=== PATIENT | male | born 1975 | race Caucasian/White ===

== ENCOUNTER 2017-02-20 06:40 | Day surgery (SDC) | payer BC ==
[2017-02-18 11:04] VITALS: BMI 26.4
[~2017-02-20 06:40] MED LIST: LACTATED RINGERS 1,000 ML IV SCH
[2017-02-20] MEDS ORDERED: LACTATED RINGERS 1,000 ML IV ONE (07:18)
[2017-02-20 07:21] VITALS: TEMP 98.2
[2017-02-20] MEDS ORDERED: PROPOFOL 10 MG/ML 20 ML VIAL IV ONE (07:44)
--- NOTE | 2017-02-20 07:48 | P.GSHP ---
History of Present Illness H&P Date: 02/20/17 Chief Complaint: History of colon polyps Patient here today for colonoscopy. He has a family history of colon cancer in grandparents. His last colonoscopy approximately 10 years ago revealed polyps. Does have some rectal bleeding at times. Past Medical History Additional Past Medical History / Comment(s): FAMILY HX COLON CA History of Any Multi-Drug Resistant Organisms: None Reported Additional Past Surgical History / Comment(s): COLONOSCOPY. ORIF RT ARM. TEETH REMOVED UNDER ANESTHESIA Past Anesthesia/Blood Transfusion Reactions: No Reported Reaction Smoking Status: Current every day smoker - Past Family History Mother Family Medical History: No Reported History Medications and Allergies Home Medications Medication Instructions Recorded Confirmed Type No Known Home Medications [No 02/18/17 02/18/17 History Known Home Medications] Allergies Allergy/AdvReac Type Severity Reaction Status Date / Time Penicillins AdvReac FACE GETS Verified 02/20/17 07:26 RED AND BLOTCHY Surgical - Exam Vital Signs Temp Pulse Resp BP Pulse Ox 98.2 F 73 18 127/82 97 02/20/17 07:20 02/20/17 07:20 02/20/17 07:20 02/20/17 07:20 02/20/17 07:20 Physical exam: General: Well-developed, well-nourished HEENT: Normocephalic, sclerae nonicteric Abdomen: Nontender, nondistended Extremities: No edema Neuro: Alert and oriented Assessment and Plan (1) Rectal bleeding Narrative/Plan: Will proceed with colonoscopy at this time. Status: Acute
--- NOTE | 2017-02-20 08:05 | P.PCN ---
Date of Procedure: 02/20/17 Preoperative Diagnosis: Postoperative Diagnosis: Procedure(s) Performed: PREOPERATIVE DIAGNOSIS: History of colon polyps, rectal bleeding POSTOPERATIVE DIAGNOSIS: Sigmoid polyp 2, small area of sigmoid colitis PROCEDURE: Colonoscopy with biopsy and polypectomy ANESTHESIA: MAC SURGEON: Ever Parkinson M.D. SPECIMENS: Sigmoid polyp, sigmoid colitis ENDOSCOPIC PROCEDURE: The patient was placed on the endoscopy table in the left decubitus position. The Olympus colonoscope was inserted into the anus and passed under direct visualization to the base of the cecum. The appendiceal orifice was visualized. From that point the scope was slowly withdrawn inspecting all surfaces carefully. There were no neoplastic inflammatory or polypoid lesions throughout the cecum, ascending, transverse, and descending colon. In the sigmoid colon there were 2 small polyps removed using the snare with cautery technique. There was an additional small area that had some inflamed mucosa and at first appeared polyp-like. More that I look at it I was concerned it may have represented a small focal area of colitis or even a inverted diverticulum. A small biopsy using the biopsy forceps took place. The remainder of the sigmoid and rectum appeared normal. There was no diverticulosis seen. Digital rectal examination was normal. The patient was taken to the recovery room in stable condition per anesthesia guidelines. RECOMMENDATIONS: Await biopsies results. If the small focus of sigmoid colitis represents adenomatous tissue will require short-term follow-up. Implants: Indications for Procedure: Operative Findings: Description of Procedure:
[2017-02-20 08:40] VITALS: BP 126/84; PULSE 61; RESP 16
== END 2017-02-20 08:49 | disposition home or self-care (01) ==
LOC: ORWHC2ENDO 06:40
PROVIDERS: ATTEND Surgery
DX: D12.5 Benign neoplasm of sigmoid colon (principal); K63.5 Polyp of colon; K62.5 Hemorrhage of anus and rectum; Z80.0 Family history of malignant neoplasm of digestive organs; Z86.010 Personal history of colon polyps; K52.9 Noninfective gastroenteritis and colitis, unspecified; F17.200 Nicotine dependence, unspecified, uncomplicated; Z88.0 Allergy status to penicillin
CPT/HCPCS: 88305; 45380; 45385; J2704

== ENCOUNTER 2019-10-12 08:16 | Emergency (ER) | payer BC ==
[2019-10-12 08:23] VITALS: BP 144/95; PULSE 95; RESP 18; TEMP 98.5
--- NOTE | 2019-10-12 08:45 | ED ---
General Adult HPI - General Chief complaint: Back Pain/Injury Stated complaint: back,leg pain Time Seen by Provider: 10/12/19 08:31 Source: patient, RN notes reviewed, old records reviewed Mode of arrival: ambulatory Limitations: physical limitation - History of Present Illness Initial comments: 44-year-old male presents for evaluation of low back pain and pain radiating to his left leg. He's had these symptoms for approximately 2 weeks on this occurrence. He's had this same symptoms of low back pain with radiation to the left leg for many years, he's had flareups lasting as many as 4 months in arrival. He was seen by his primary care physician 2 days ago and prescribed a muscle relaxer and anti-inflammatory but has not had these medications filled. He denies any bowel or bladder incontinence. He denies numbness or weakness to the leg. Pain is predominantly in his left buttock and low back. Pain as described as the same as it has been for many years. No fevers or chills. No IV drug use. - Related Data Previous Rx's Medication Instructions Recorded Cyclobenzaprine [Flexeril] 5 mg PO TID PRN #9 tablet 10/12/19 Ibuprofen [Motrin] 600 mg PO Q8HR PRN #24 tab 10/12/19 Allergies Allergy/AdvReac Type Severity Reaction Status Date / Time Penicillins AdvReac FACE GETS Verified 10/12/19 08:23 RED AND BLOTCHY Review of Systems ROS Statement: Those systems with pertinent positive or pertinent negative responses have been documented in the HPI. ROS Other: All systems not noted in ROS Statement are negative. Past Medical History Additional Past Medical History / Comment(s): chronic back pain, Genital Herpes History of Any Multi-Drug Resistant Organisms: None Reported Additional Past Surgical History / Comment(s): COLONOSCOPY. ORIF RT ARM. TEETH REMOVED UNDER ANESTHESIA Past Anesthesia/Blood Transfusion Reactions: No Reported Reaction Past Psychological History: No Psychological Hx Reported Smoking Status: Current every day smoker Past Alcohol Use History: Occasional Past Drug Use History: None Reported - Past Family History Mother Family Medical History: No Reported History General Exam Limitations: physical limitation General appearance: alert, in no apparent distress Head exam: Present: atraumatic, normocephalic Eye exam: Present: normal appearance, PERRL ENT exam: Present: normal exam Neck exam: Present: normal inspection, tenderness Respiratory exam: Present: normal lung sounds bilaterally. Absent: respiratory distress, wheezes Cardiovascular Exam: Present: regular rate, normal rhythm GI/Abdominal exam: Present: soft. Absent: distended, tenderness, guarding, rebound Extremities exam: Present: normal inspection, normal capillary refill. Absent: pedal edema, joint swelling Back exam: Present: normal inspection, full ROM, paraspinal tenderness. Absent: vertebral tenderness Neurological exam: Present: alert, oriented X3, CN II-XII intact, normal gait, reflexes normal (Normal patellar reflexes bilaterally), other (No sensory deficit in the lower extremity, no saddle anesthesia). Absent: motor sensory deficit Psychiatric exam: Present: normal affect, normal mood Skin exam: Present: warm, dry, intact. Absent: cyanosis, diaphoretic Course Vital Signs 10/12/19 08:19 Temperature 98.5 F Pulse Rate 95 Respiratory 18 Rate Blood Pressure 144/95 O2 Sat by Pulse 100 Oximetry Medical Decision Making - Medical Decision Making 44-year-old male with acute on chronic low back pain. No red flag symptoms, normal gait, normal reflexes, normal strength in the lower extremities. Given the chronicity of his symptoms I will recommend orthopedic follow-up and possible need of further imaging including MRI of the spine. I will prescribe an anti-inflammatory and muscle relaxer. Disposition Clinical Impression: Sciatica, Mechanical back pain Disposition: HOME SELF-CARE Condition: Good Instructions (If sedation given, give patient instructions): Acute Low Back Pain (ED) Additional Instructions: Please follow up with both her primary care physician and orthopedic surgery. Prescriptions: Cyclobenzaprine [Flexeril] 5 mg PO TID PRN #9 tablet PRN Reason: Muscle Spasm Ibuprofen [Motrin] 600 mg PO Q8HR PRN #24 tab PRN Reason: Pain Is patient prescribed a controlled substance at d/c from ED?: No Referrals: Jolene Hardy MD [Primary Care Provider] - 1-2 days Atyia Duque DO [Doctor of Osteopathic Medicine] - 1-2 days Time of Disposition: 08:44
== END 2019-10-12 08:58 | disposition home or self-care (01) ==
LOC: EC 08:16
DX: M54.42 Lumbago with sciatica, left side (principal); G89.29 Other chronic pain; F17.200 Nicotine dependence, unspecified, uncomplicated; Z88.0 Allergy status to penicillin
CPT/HCPCS: 99283

== ENCOUNTER → 2019-11-28 | Outpatient (CLI) | payer BC ==
[2019-11-28 11:04] LABS: African American GFR (CKD) >90 (>60 ml/min/1.73 sqM); Anion Gap 10 mmol/L; Blood Urea Nitrogen 17 mg/dL (9-20); Calcium 9.7 mg/dL (8.4-10.2); Carbon Dioxide 26 mmol/L (22-30); Chloride 102 mmol/L (98-107); Glucose 113 mg/dL (74-99); Non-African American GFR(CKD) >90 (>60 ml/min/1.73 sqM); Potassium 4.2 mmol/L (3.5-5.1); Sodium 138 mmol/L (137-145)
[2019-11-28 11:08] LABS: INR 0.9 (<1.2); Partial Thromboplastin Time 22.8 sec (22.0-30.0); Prothrombin Time 9.6 sec (9.0-12.0)
--- NOTE | 2019-11-28 11:13 | XR ---
EXAMINATION TYPE: XR chest 2V DATE OF EXAM: 11/28/2019 COMPARISON: NONE HISTORY: Presurgical testing for lumbar spine surgery. TECHNIQUE: Frontal and lateral views of the chest are obtained. FINDINGS: There is no focal air space opacity, pleural effusion, or pneumothorax seen. The cardiac silhouette size is within normal limits. The osseous structures are intact. Mild multilevel degener ative change of the thoracic spine. IMPRESSION: No acute cardiopulmonary process.
[2019-11-28 11:23] LABS: Basophils % (A) 0 %; Eosinophils # (A) 0.1 k/uL (0-0.7); Eosinophils % (A) 2 %; HCT 47.1 % (39.0-53.0); HGB 16.1 gm/dL (13.0-17.5); Lymphocytes # (A) 2.1 k/uL (1.0-4.8); Lymphocytes % (A) 24 %; MCH 31.3 pg (25.0-35.0); MCHC 34.3 g/dL (31.0-37.0); MCV 91.4 fL (80.0-100.0); Mean Platelet Volume 8.5; Monocytes # (A) 0.5 k/uL (0-1.0); Monocytes % (A) 6 %; Neutrophils # (A) 5.7 k/uL (1.3-7.7); Neutrophils % (A) 66 %; Platelet Count 200 k/uL (150-450); RBC 5.15 m/uL (4.30-5.90); RDW 12.7 % (11.5-15.5); WBC 8.6 k/uL (3.8-10.6)
[2019-11-28 12:00] LABS: Appearance,Urine Clear (Clear); Bilirubin,Urine Negative (Negative); Blood,Urine Negative (Negative); Color,Urine Yellow; Glucose,Urine (UA) Negative (Negative); Ketones,Urine Trace (Negative); Leukocyte Esterase,Urine Negative (Negative); Nitrite,Urine Negative (Negative); PH, Urine 5.5 (5.0-8.0); Protein,Urine Trace (Negative); Specific Gravity,Urine 1.022 (1.001-1.035); Urobilinogen,Urine <2.0 mg/dL (<2.0)
== END | disposition home or self-care (01) ==
LOC: LABWHC1 10:21
PROVIDERS: ATTEND Orthopaedic Surgery Orthopaedic Surgery of the Spine
DX: Z01.818 Encounter for other preprocedural examination (principal); Z01.810 Encounter for preprocedural cardiovascular examination; M51.27 Other intervertebral disc displacement, lumbosacral region
CPT/HCPCS: 36415; 71046; 80048; 81003; 85025; 85610; 85730; 86850; 86900; 86901; 93005

== ENCOUNTER 2019-12-02 08:45 | Day surgery (SDC) | payer BC ==
[2019-11-29 13:38] VITALS: BMI 25.1
[~2019-12-02 08:45] MED LIST changes: -LACTATED RINGERS 1,000 ML IV SCH; +SODIUM CHLORIDE 0.9% 1,000 ML IV SCH
[2019-12-02] MEDS ORDERED: ONDANSETRON 4 MG/2 ML VIAL IVP ONE (08:49)
[2019-12-02] MEDS ORDERED: DEXAMETHASONE SOD PHOSPHATE 10 MG/ML 1 ML VIAL IV ONE ×2 (08:49→14:17)
[2019-12-02] MEDS ORDERED: HYDROmorphone 0.5 MG/0.5 ML SYRINGE IVP PRN (08:49)
[2019-12-02] MEDS ORDERED: LIDOCAINE 1% (10MG/ML) FOR IV START INTRADERMA PRN (08:49)
[2019-12-02] MEDS ORDERED: LACTATED RINGERS 1,000 ML IV SCH (08:49)
[2019-12-02 09:39] VITALS: TEMP 97.8
[2019-12-02] MEDS ORDERED: PROPOFOL 10 MG/ML 20 ML VIAL IV ONE (10:13)
[2019-12-02] MEDS ORDERED: MIDAZOLAM 2 MG/2 ML VIAL ONE (10:13)
[2019-12-02] MEDS ORDERED: ROCURONIUM BROMIDE 10 MG/ML 5 ML VIAL IV ONE (10:13)
[2019-12-02] MEDS ORDERED: NEOSTIGMINE 1 MG/ML 10 ML VIAL ONE (10:13)
[2019-12-02] MEDS ORDERED: fentaNYL (PF) 50 MCG/ML 2 ML AMP ONE (10:13)
[2019-12-02] MEDS ORDERED: SUCCINYLCHOLINE CHLORIDE 100 MG/5 ML SYR IV ONE (10:13)
[2019-12-02] MEDS ORDERED: HYDROmorphone (PF) 1 MG/ML ONE (10:13)
[2019-12-02] MEDS ORDERED: GLYCOPYRROLATE 0.2 MG/ML 2 ML VIAL ONE (10:13)
[2019-12-02] MEDS ORDERED: methylPREDNISolone ACETATE 80 MG/ML 1 ML VIAL INTRABURSA ONE (10:56)
[2019-12-02] MEDS ORDERED: BUPIVACAIN-EPI 0.25%-1:200,000 30 ML VIAL SQ ONE (10:56)
--- NOTE | 2019-12-02 11:21 | FL ---
EXAMINATION TYPE: FL guidance operating room DATE OF EXAM: 12/02/2019 CLINICAL HISTORY: Lumbar laminectomy. Low back pain. TECHNIQUE: Fluoroscopy. COMPARISON: None. FINDINGS: Fluoroscopic guidance was provided during lumbar laminectomy procedure performed by Dr. Bienvenido downey. A total of 3 seconds of fluoroscopic time was utilized during the procedure and single spot flu oroscopic intraoperative image is acquired. Single image acquired shows placement of hardware near rizwan mbosacral junction posteriorly for localization. IMPRESSION: As Above.
[2019-12-02] MEDS ORDERED: LACTATED RINGERS 1,000 ML IV ONE (11:45)
[2019-12-02] MEDS ORDERED: ACYCLOVIR 800 MG TAB PO PRN (12:08)
[2019-12-02] MEDS ORDERED: ZOLPIDEM 10 MG TAB PO PRN (12:08)
[2019-12-02] MEDS ORDERED: HYDROcodone/APAP 5-325MG 1 EACH TAB PO PRN ×2 (12:08)
[2019-12-02] MEDS ORDERED: HYDROmorphone 1 MG/ML 1 ML SYRINGE IVP PRN (12:08)
[2019-12-02] MEDS ORDERED: KETOROLAC 30 MG/ML 1 ML VIAL IVP PRN (12:08)
[2019-12-02] MEDS ORDERED: CYCLOBENZAPRINE 5 MG TAB PO PRN (12:08)
[2019-12-02] MEDS ORDERED: IBUPROFEN 600 MG TAB PO PRN ×2 (12:08)
[2019-12-02] MEDS ORDERED: ONDANSETRON 4 MG/2 ML VIAL IVP PRN (12:08)
[2019-12-02] MEDS: MEPERIDINE 50 MG/ML SYRINGE IVP ONE ×2 (12:15→12:22)
--- NOTE | 2019-12-02 12:18 | P.OP ---
Date of Procedure: 12/02/19 Preoperative Diagnosis: Herniated nucleus pulposis L5-S1 with extruded fragment, severe left foraminal stenosis, left lower extremity radiculopathy, left lower extremity weakness, low back pain Postoperative Diagnosis: Herniated nucleus pulposis L5-S1 with extruded fragment, severe left foraminal stenosis, left lower extremity radiculopathy, left lower extremity weakness, low back pain Anesthesia: GETA Pathology: none sent Condition: stable Disposition: PACU Description of Procedure: BRIEF OPERATIVE NOTE Preoperative Diagnosis:Herniated nucleus pulposis L5-S1 with extruded fragment, severe left foraminal stenosis, left lower extremity radiculopathy, left lower extremity weakness, low back pain Postoperative Diagnosis:Herniated nucleus pulposis L5-S1 with extruded fragment, severe left foraminal stenosis, left lower extremity radiculopathy, left lower extremity weakness, low back pain Procedure: Laminectomy and decompression L5-S1 Discectomy for decompression L5-S1 Use of fluoroscopic guidance Surgeon: Dr. Duque Sterile Process Coordinator: Nasir Ayala is present throughout the entire the case persistence during positioning, dissection, exposure, visualization, and all crucial elements of the case as well as closure. Anesthesia: General anesthesia per Dr. Diamond Estimated blood loss: Approximately 50 mL Complications: None apparent Components implanted: None Disposition: To recovery room in good stable condition. OPERATIVE INDICATIONS The patient has been having issues in their lower back and lower extremities. The patient was found have a large disc herniation at L5-S1 with an extruded fragment. He had severe left foraminal stenosis. He was having back pain and left lower extremity radiculopathy and was having weakness of his left leg. He was having continued pain despite conservative treatment. He was having significant debility despite conservative care and he did not feel like his strength was making any improvement. He did not feel like he coworker to any activities with the pain and weakness of his leg. The patient has been through conservative treatment. We discussed various treatment options including surgery, and the patient wishes to proceed with surgery We discussed the risk, patient's alternatives and benefits of surgery including but not limited to, risk of bleeding risk of infection, risk of need for further surgery, risk of decreased, loss of motion, loss of function, nerve damage, paralysis, heart attack, blindness and . We also discussed the fact that there is a current pandemic and that we cannot completely guarantee that the patient be completely free of exposure. Certainly all of the work is involved would be asymptomatic including myself and the patient. He understood these risks as well. OPERATIVE SUMMARY After discussing all the risks, patient alternatives and benefits at length, the patient elected to proceed with surgical intervention, signed informed consent, and presented for their procedure. The patient was seen and examined in the preoperative holding area and the surgical site was marked. The patient was given antibiotics and brought to the operating room. The patient was sedated and intubated by anesthesia in standard fashion. The patient was positioned on to the operating room table in a prone position on the appropriate frame which was well-padded and well molded. We were careful to pad any bony prominences and pressure points. We were careful to maintain the patient's cervical spine and good neutral alignment and position throughout. The patient was prepped and draped in a normal standard fashion. An appropriate timeout and keystone protocol performed. We were able to proceed with the surgery. Fluoroscopy was utilized to establish the appropriate level. The local wound area was infiltrated with local anesthetic. An incision was made at the midline longitudinally over the appropriate levels at L5-S1. Dissection was taken down subcutaneously to the level of the fascia which was split midline. Dissection was taken over the lamina. Intraoperative fluoroscopy was taken which showed a marker at the appropriate level of L5-S1. With the appropriate level positively confirmed, we were able to proceed with laminectomy. The wound was copiously irrigated and suctioned dry as had been done periodically throughout the case. I performed a laminectomy with a combination of curettes and a high-speed bur and Kerrison rongeurs. A small medial facetectomy was performed again further access. A partial foraminotomy was also performed. Portions of the ligamentum flavum were taken down to expose the dura and traversing nerve root. I was able to mobilize the traversing nerve root and gain access to the disc space. Note was made of obvious compression from the disc. The disc was scarred in with significant soft tissue around it and some tethering over the traversing nerve root. Protecting the soft tissue structures, a small annulotomy was established. I was able to perform discectomy and remove any extruded disc fragments and any loose fragments from within the disc itself. Large fragments of disc were removed but there was some scar along the traversing nerve root which had the left to prevent damage the nerve root itself. There is some disc desiccation noted. I tried to preserve the disc annulus that appeared stable. There were no further extruded fragments noted. There is no evidence of dural tear or leak. Good hemostasis maintained. The wound was copiously irrigated and suctioned dry. Good decompression and discectomy was noted. We were able to proceed with closure. The fascia was closed for a watertight closure. The subcuticular tissue was closed with absorbable suture. The wound was cleaned and dried and dressed with the appropriate dressing. The drapes were broken down. The patient was gently rolled back onto their hospital bed being careful to maintain their cervical spine and good neutral alignment and position. They were woken up by anesthesia, extubated, and brought to the recovery room in good stable condition. The patient will be admitted to the hospital for observation and for appropriate postoperative care, medical management and monitoring. We will continue to follow them closely about the postoperative course.
[2019-12-02] MEDS ORDERED: diphenhydrAMINE 50 MG/ML 1 ML VIAL IVP ONE (12:33)
[2019-12-02] MEDS ORDERED: HYDROcodone/APAP 7.5-325MG 1 EACH TAB PO ONE (14:17)
[2019-12-02 15:44] VITALS: BP 137/72; PULSE 93; RESP 16
== END 2019-12-02 15:48 | disposition home or self-care (01) ==
LOC: OR 08:45
PROVIDERS: ATTEND Orthopaedic Surgery Orthopaedic Surgery of the Spine
DX: M51.17 Intervertebral disc disorders with radiculopathy, lumbosacral region (principal); M48.07 Spinal stenosis, lumbosacral region; M48.062 Spinal stenosis, lumbar region with neurogenic claudication; B00.9 Herpesviral infection, unspecified; K08.89 Other specified disorders of teeth and supporting structures; K21.9 Gastro-esophageal reflux disease without esophagitis; G89.29 Other chronic pain; F17.210 Nicotine dependence, cigarettes, uncomplicated; Z88.0 Allergy status to penicillin; Z79.1 Long term (current) use of non-steroidal anti-inflammatories (NSAID); Z79.899 Other long term (current) drug therapy; Z79.891 Long term (current) use of opiate analgesic; Z97.3 Presence of spectacles and contact lenses; Z98.890 Other specified postprocedural states
CPT/HCPCS: 63047; J1200; J1040; J1100; J2175; J0690; J2405; J1885; 36415; 86850; 86900; 86901

== ENCOUNTER 2025-03-12 14:25 | Emergency (ER) | payer BC, OTHER ==
[2025-03-12] MEDS: KETOROLAC 15 MG/ML 1 ML VIAL IM STA (15:03)
[2025-03-12] MEDS: ORPHENADRINE 30 MG/ML 2 ML VIAL IM STA (15:04)
[2025-03-12] MEDS: DEXAMETHASONE SOD PHOSPHATE 10 MG/ML 1 ML VIAL IM STA (15:05)
[2025-03-12] MEDS: LIDOCAINE 4% PATCH TOPICAL ONE (15:11)
--- NOTE | 2025-03-12 15:11 | XR ---
EXAMINATION TYPE: XR lumbar spine 2 or 3V DATE OF EXAM: 03/12/2025 3:01 PM COMPARISON: None. CLINICAL INDICATION: Male, 49 years old with history of pain; PHH, pain TECHNIQUE: XR lumbar spine 2 or 3V - Frontal, lateral and coned in L5-S1 lateral views of the spine. FINDINGS: No acute fracture or traumatic subluxation. 5 lumbar spine vertebral body heights are prese nt for the purposes of this examination. Multilevel intervertebral disc space loss, most pronounced a t L5-S1. Multilevel facet arthropathy, most pronounced at L4-5 and L5-S1. IMPRESSION: 1. No acute osseous abnormality. 2. Lumbosacral spine degenerative changes as above. [facility], , 03/12/2025 3:08 PM
[2025-03-12 15:31] LABS: Bilirubin,Urine Negative (Negative); Blood,Urine Negative (Negative); Color,Urine Colorless; Glucose,Urine (UA) Negative (Negative); Ketones,Urine Negative (Negative); Leukocyte Esterase,Urine Negative (Negative); Nitrite,Urine Negative (Negative); PH, Urine 5.5 (5.0-8.0); Protein,Urine Negative (Negative); Specific Gravity,Urine 1.020 (1.001-1.035); Urobilinogen,Urine <2.0 mg/dL (<2.0)
--- NOTE | 2025-03-12 16:31 | ED ---
Back Pain HPI - General Chief Complaint: Back Pain/Injury Stated Complaint: Pain in right hind end Time Seen by Provider: 03/12/25 14:31 Source: patient Limitations: no limitations - History of Present Illness Initial Comments: 49-year-old male presenting with chief complaint of back pain. Pain is in the right lower back with radiation down the right leg. Patient reports that he previously had the same symptoms on the left side and had surgery with Dr. Duque, feels the same but not on the opposite side. He was told likely he would require surgery on the opposite side in the future. He has had no loss of bowel or bladder control or saddle paresthesia. No dysuria, hematuria, urgency, frequency, fever, chills, nausea, vomiting, abdominal pain. No obvious injury or trauma. Patient does work a physical job that requires a lot of heavy lifting. - Related Data Home Medications Medication Instructions Recorded Confirmed Zolpidem [Ambien] 10 mg PO HS PRN 11/29/19 12/02/19 Acyclovir 800 mg PO DAILY PRN 12/02/19 12/02/19 Previous Rx's Medication Instructions Recorded Cyclobenzaprine [Flexeril] 5 mg PO TID PRN #9 tablet 10/12/19 Ibuprofen [Motrin] 600 mg PO Q8HR PRN #24 tab 10/12/19 HYDROcodone/APAP 7.5-325MG [[place] 1 tab PO Q6HR PRN #28 tab 12/02/19 7.5-325] Cyclobenzaprine [Flexeril] 10 mg PO TID PRN #15 tab 03/12/25 Allergies Allergy/AdvReac Type Severity Reaction Status Date / Time Penicillins Allergy FACE GETS Verified 03/12/25 14:28 RED AND BLOTCHY meperidine [From Demerol] AdvReac Severe Rash/Hives Verified 03/12/25 14:28 Review of Systems ROS Statement: Those systems with pertinent positive or pertinent negative responses have been documented in the HPI. ROS Other: All systems not noted in ROS Statement are negative. Past Medical History Additional Past Medical History / Comment(s): chronic back pain, Genital Herpes History of Any Multi-Drug Resistant Organisms: None Reported Additional Past Surgical History / Comment(s): COLONOSCOPY. ORIF RT ARM. TEETH REMOVED UNDER ANESTHESIA Past Anesthesia/Blood Transfusion Reactions: No Reported Reaction Past Psychological History: No Psychological Hx Reported Smoking Status: Vaper Past Alcohol Use History: Occasional Past Drug Use History: Marijuana - Past Family History Mother Family Medical History: No Reported History General Exam Limitations: no limitations General appearance: alert, in no apparent distress Head exam: Present: atraumatic, normocephalic, normal inspection Eye exam: Present: normal appearance, EOMI Neck exam: Present: normal inspection. Absent: meningismus Respiratory exam: Absent: respiratory distress Cardiovascular Exam: Present: regular rate Back exam: Present: normal inspection, tenderness Neurological exam: Present: alert, oriented X3 Psychiatric exam: Present: normal affect, normal mood Skin exam: Present: warm, dry, normal color. Absent: rash Course Vital Signs 03/12/25 03/12/25 14:28 16:37 Temperature 97.5 F L 98.0 F Pulse Rate 75 77 Respiratory 18 20 Rate Blood Pressure 149/93 146/92 O2 Sat by Pulse 98 99 Oximetry Medical Decision Making - Medical Decision Making Was pt. sent in by a medical professional or institution (, PA, SWITCH CREW SUPERVISOR, urgent care, hospital, or senior living...) When possible be specific @ -No Did you speak to anyone other than the patient for history (EMS, parent, family, police, friend...)? What history was obtained from this source @ -No Did you review nursing and triage notes (agree or disagree)? Why? @ -I reviewed and agree with nursing and triage notes Were old charts reviewed (outside hosp., previous admission, EMS record, old EKG, old radiological studies, urgent care reports/EKG's, senior living records)? Report findings @ -No old charts were reviewed Differential Diagnosis (chest pain, altered mental status, abdominal pain women, abdominal pain men, vaginal bleeding, weakness, fever, dyspnea, syncope, headache, dizziness, GI bleed, back pain, seizure, CVA, palpatations, mental health, musculoskeletal)? @ - [facility] Differential Back Pain: Strain, zoster, cauda equina syndrome, epidural abscess, vertebral osteomye litis, discitis, fracture, subluxation, disc herniation, DJD, spinal stenosis, dissection, AAA, pancreatitis, peptic ulcer disease, pyelonephritis, kidney stone… this is not meant to be an all-inclusive list. EKG interpreted by me (3pts min.). @ -As above X-rays interpreted by me (1pt min.). @ -Lumbar spine x-ray shows no acute osseous abnormality. Lumbosacral spine degenerative changes CT interpreted by me (1pt min.). @ -None done U/S interpreted by me (1pt. min.). @ -None done What testing was considered but not performed or refused? (CT, X-rays, U/S, labs)? Why? @ -None What meds were considered but not given or refused? Why? @ -None Did you discuss the management of the patient with other professionals (professionals i.e. DrDominic, PA, SWITCH CREW SUPERVISOR, lab, RT, psych nurse, sr. social media & mobile manager, lawyers, teacher, county records management officer, child welfare caseworker)? Give summary @ -No Was smoking cessation discussed for >3mins.? @ -No Was critical care preformed (if so, how long)? @ -No Were there social determinants of health that impacted care today? How? (Homelessness, low income, unemployed, alcoholism, drug addiction, transportation, low edu. Level, literacy, decrease access to med. care, correction, rehab)? @ -No Was there de-escalation of care discussed even if they declined (Discuss DNR or withdrawal of care, Hospice)? DNR status @ -No What co-morbidities impacted this encounter? (DM, HTN, Smoking, COPD, CAD, Cancer, CVA, ARF, Chemo, Hep., AIDS, mental health diagnosis, sleep apnea, morbid obesity)? @ -None Was patient admitted / discharged? Hospital course, mention meds given and route, prescriptions, significant lab abnormalities, going to OR and other pertinent info. @ -49-year-old male presenting with chief complaint of lower back pain. No red flag symptoms. States he does work as a physically demanding job with a lot of heavy lifting. No known injury or trauma. Urine shows no infection or bleeding. X-ray shows degenerative changes of the spine. Patient reports improvement upon reassessment. He is educated on today's findings. Instructed to follow-up with his orthopedic surgeon. Follow-up with PCP. Report back to ER with any new or worsening symptoms. Discussed return parameters and answered all questions. Patient conveyed verbal understanding and agreed to the plan. I discussed this case in detail with my attending Dr. Lozano Undiagnosed new problem with uncertain prognosis? @ -No Drug Therapy requiring intensive monitoring for toxicity (Heparin, Nitro, Insulin, Cardizem)? @ -No Were any procedures done? @ -No Diagnosis/symptom? @ -Lumbar radiculopathy Acute, or Chronic, or Acute on Chronic? @ -Acute Uncomplicated (without systemic symptoms) or Complicated (systemic symptoms)? @ -Uncomplicated Side effects of treatment? @ -No Exacerbation, Progression, or Severe Exacerbation? @ -No Poses a threat to life or bodily function? How? (Chest pain, [place], [place], pneumonia, PE, COPD, DKA, ARF, appy, cholecystitis, CVA, Diverticulitis, Homicidal, Suicidal, threat to staff... and all critical care pts) @ -Unlikely - Lab Data Lab Results 03/12/25 Range/Units 15:21 Urine Color Colorless Urine Appearance Clear (Clear) Urine pH 5.5 (5.0-8.0) Ur Specific [place] 1.020 (1.001-1.035) Urine Protein Negative (Negative) Urine Glucose (UA) Negative (Negative) Urine Ketones Negative (Negative) Urine Blood Negative (Negative) Urine Nitrite Negative (Negative) Urine Bilirubin Negative (Negative) Urine Urobilinogen <2.0 (<2.0) mg/dL Ur Leukocyte Esterase Negative (Negative) Disposition Clinical Impression: Lumbar radiculopathy Disposition: HOME SELF-CARE Condition: Good Instructions (If sedation given, give patient instructions): Acute Low Back Pain (ED) Additional Instructions: Follow-up with your PCP and orthopedist. Report back to ER with any new or worsening symptoms. Do not take cyclobenzaprine before driving or operating heavy machinery as this may cause drowsiness Prescriptions: Cyclobenzaprine [Flexeril] 10 mg PO TID PRN #15 tab PRN Reason: Spasms Is patient prescribed a controlled substance at d/c from ED?: No Referrals: None,Stated [Primary Care Provider] - 1-2 days Atiya Duque DO [Doctor of Osteopathic Medicine] - 1-2 days Time of Disposition: 16:30
[2025-03-12] MEDS: Acetaminophen-Codeine 300-30mg TAB PO STA (16:34)
[2025-03-12 16:38] VITALS: BP 146/92; PULSE 77; RESP 20; TEMP 98
== END 2025-03-12 18:03 | disposition home or self-care (01) ==
LOC: EC 14:25
DX: M54.16 Radiculopathy, lumbar region (principal); F17.290 Nicotine dependence, other tobacco product, uncomplicated; Z88.0 Allergy status to penicillin; Z88.5 Allergy status to narcotic agent
CPT/HCPCS: 81003; 72100; 99284; 96372; J1100; J2360; J1885